=== PATIENT | male | born 1970 | race Caucasian/White ===

== ENCOUNTER 2025-05-05 08:22 | Outpatient (REF) | payer BC, SELFPAY ==
--- NOTE | ~2025-05-05 | XR_ITS ---
EXAMINATION: XR KNEE 3 VIEWS RIGHT HISTORY: M25.561 - Pain in right knee COMPARISON: There are no prior studies for comparison. FINDINGS: AP and lateral views of the right knee are submitted. The patient is status post right total knee arthroplasty. The orthopedic elements are in anatomic alignment. There is no radiographic evidence of loosening. There is no fracture or dislocation. There is no joint effusion. The soft tissues are unremarkable. XR/XR knee RT 3V IMPRESSION: Status post right total knee arthroplasty. Electronically signed by: John Correia MD 05/05/2025 11:00 AM EDT
== END 2025-05-05 08:23 | disposition home or self-care (01) ==
LOC: HO.HOSX 08:22
PROVIDERS: Visit Provider Orthopaedic Surgery
DX: M25.561 Pain in right knee (principal); M54.50 Low back pain, unspecified; M79.604 Pain in right leg
CPT/HCPCS: 73562; 99202

== ENCOUNTER 2025-05-05 10:39 | Outpatient (AMB) | payer MEDICARE, SELFPAY ==
--- NOTE | 2025-05-05 10:51 | A.OFFVIS_ITS ---
Vital Signs 05/05/25 10:59 Height 5 ft 8 in Weight 300 lb BMI 45.6 Intake Visit Reasons: [employer]-Chronic right knee pain, Low back pain radiating to right leg Intake Note: Geraldo is a 54 year old man who presents with complaints of progressively worsening low back pain which radiates down his right leg as well as intermittent right knee pain. The patient did undergo right total knee replacement surgery by Dr. Gayle in 2020. The patient states that ever since his surgery he has had pain in his right knee and right leg. He also reports intermittent weakness in his right leg. The patient reports a history of chronic low back pain. He states that his low back pain has gotten worse over the last few years in spite of continued non operative treatments. Has failed the last 6 weeks of conservative treatment which has included Tylenol, anti- inflammatory medicines, physical therapy exercises and a home exercise program. Allergies No Known Allergies Allergy (Verified 05/05/25 10:57) Medication List - Last Reconciled 05/05/25 by Terrell Ramirez MD aspirin 81 mg PO DAILY lisinopril-hydrochlorothiazide 20-12.5 mg 1 tab PO DAILY metoprolol succinate ER 12.5 mg PO DAILY [facility] Surgical History (Updated 05/05/25 @ 10:58 by CINDY Rascon) H/O right knee surgery Physical Exam Vital Signs: BMI result Body Mass Index 45.6 Const Other: Well-nourished well-developed very friendly male awake alert and oriented x3 in no acute distress Back/Spine/Pelvis Other: Low back examination shows right-sided paraspinal muscle tenderness, pain with range of motion, positive straight leg raise test on the right at 70 degrees, 4/5 strength with testing of his right hip flexors and knee extensors when compared to 5/5 strength on his left side Extrem Other: Right knee examination shows that the surgical incision is well healed, no erythema, full active extension and flexion to 120 degrees, his patella tracks well Results Reviewed Results Reviewed: X-rays of the patient's right knee show a total knee arthroplasty in good posi tion with no signs of loosening, no acute bony abnormalities Assessment & Plan Assessment & Plan (1) Right knee pain: Code(s): M25.561 - Pain in right knee Category: Medical (2) Low back pain radiating to right leg: Code(s): M54.50 - Low back pain, unspecified; M79.604 - Pain in right leg Category: Medical Plan Mr. Richards presents with low back pain which radiates down his right leg as well as associated right leg weakness possibly due to lumbar stenosis or a disc herniation. Thus, I will send the patient for an MRI of his lumbar spine for further evaluation. I will contact him by phone once the MRI results are available. He will call me prior to that time should his symptoms worsen in any way. The patient also has chronic pain after undergoing right total knee replacement surgery by Dr. Gayle in 2020. I will arrange for him to have an evaluation with Dr. Rushing in our pain management department. The patient may be a candidate for a nerve stimulation procedure to help with his discomfort. Feel free to call me at any time should questions regarding his orthopedic management arise. Thank you very much for asking me to see this very friendly gentleman. I spent 22 minutes in reviewing the patient's records and imaging studies, seeing the patient and documenting in the medical record. Orders: Orders XR knee RT 3V Today M25.561 - Pain in right knee MR lumbar spine wo con 05/06/25 M54.50 - Low back pain, unspecified, M79.604 - Pain in right leg Referrals Pain Management Referral M25.561 - Pain in right knee Coding Level of Care Code New Pt Level 3 (26246) Complex EM visit Add On G2211 Diagnoses Right knee pain M25.561 Low back pain radiating to right leg M54.50; M79.604
[2025-05-05 10:59] VITALS: BMI 45.6
== END 2025-05-05 11:19 | disposition home or self-care (01) ==
LOC: HO.HOS 10:40
PROVIDERS: Visit Provider Orthopaedic Surgery
DX: M25.561 Pain in right knee (principal); M54.50 Low back pain, unspecified; M79.604 Pain in right leg
CPT/HCPCS: 99203; G2211

== ENCOUNTER → 2025-05-05 10:43 | Outpatient (BNV) | payer MEDICARE, SELFPAY | PROVIDERS: Visit Provider Radiology Diagnostic Radiology | DX: M25.561 Pain in right knee (principal) | CPT/HCPCS: 73562 ==

== ENCOUNTER → 2025-06-18 11:10 | Outpatient (BNV) | payer BC, SELFPAY | PROVIDERS: PCP Family Medicine; Visit Provider Radiology Diagnostic Radiology | DX: M47.816 Spondylosis without myelopathy or radiculopathy, lumbar region (principal) | CPT/HCPCS: 72148 ==

== ENCOUNTER 2025-06-18 11:18 | Outpatient (REF) | payer BC, SELFPAY ==
--- NOTE | ~2025-06-18 | MR_ITS ---
CLINICAL HISTORY: M54.50 - Low back pain, unspecified MR lumbar spine without contrast Comparison: None provided Findings: 5 nonrib-bearing lumbar type vertebral bodies are assumed for the purpose of this report. Recommend close radiographic correlation prior to any spinal intervention or surgery. No acute fracture or dislocation, lumbar lordotic curvature is maintained, 2 mm degenerative retrolisthesis L5-S1. No spondylolysis. Small Schmorl's nodes T11 and T12 superior endplates. Multilevel prevertebral osteophytes. Conus medullaris terminates at T12-L1, normal morphology. Paraspinal musculature and included abdominopelvic contents are unremarkable. Mild sclerotic changes and osteophytes of the SI joints. Segmental analysis: T11-12: Only included on sagittal sequences, disc desiccation and disc height loss, posterior annular fissure and mild diffuse posterior disc bulge, mild central canal stenosis, no foraminal narrowing. T12-L1, L1-L2: Normal disc. No central canal stenosis or foraminal narrowing. Unremarkable facets. L2-L3: Mild disc desiccation, mild diffuse annular disc bulge, mild facet arthrosis, mild central canal stenosis, no foraminal narrowing. L3-4: Mild disc desiccation, no disc protrusion or bulge. 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 No foraminal narrowing. Bilateral facet arthropathy. L4-5: Disc desiccation, minimal diffuse posterior disc bulge. Mild facet arthropathy. No central canal stenosis or foraminal narrowing. L5-S1: Disc desiccation, minimal retrolisthesis and minimal diffuse posterior disc bulge, left worse than right facet arthropathy. No central canal stenosis, equivocal inferior foraminal narrowing. Impression: Mild degenerative spondylosis of the lumbar spine. This document has been electronically signed by: Sallie Beth MD on 06/20/2025 11:18:50
== END 2025-06-18 11:19 | disposition home or self-care (01) ==
LOC: HO.MRI 11:18
PROVIDERS: PCP Family Medicine; Visit Provider Orthopaedic Surgery
DX: M79.604 Pain in right leg (principal); M54.50 Low back pain, unspecified
CPT/HCPCS: 72148